=== PATIENT | female | born 1935 | race African-American/Black ===

== ENCOUNTER → 2016-07-10 | Outpatient (CLI) | payer MEDICARE, BC ==
[~2016-07-10] MED LIST: ACETAMINOPHEN325 M1 PO; ACETAMINOPHEN500 M3 PO; ALLOPURINOL100 MG PO; AMOXICILLIN AND1 TER PO; ASPIRIN 81MG TA81 MG PO; ATORVASTATIN CA20 MG PO; BACTRIM DS 8001 TA1 PO; BACTRIM DS 8001 TAB PO; CEPHALEXIN500 MG PO; CHILDREN'S ROB118 M1 PO; CHLORTHALIDONE50 MG PO; CIPRO 250MG TA250 MG PO; CLOPIDOGREL75 M1 PO; DAILY VITE1 TA1 PO; GENTAMICIN O5 ML/BOT OP; GENTAMYCIN TP; HCTZ/SPIRONOLAC1 TAB PO; HUMULIN 70/30 PE3 ML SC; HUMULIN 70100 UNITS/ SC; INSULIN GL100 UNITS/ SC; IPRATROPIUM BROM3 M1 IH; KAYEXALATE1 PDR PO; LASIX 20MG. TAB20 MG PO; LASIX40 MG PO; LEVAQUIN500 MG PO; LEVOTHYROXIN0.075 M3 PO; LIPITOR40 MG PO; LISINOPRIL 5MG T5 MG PO; LISINOPRIL5 MG PO; LOPRESSOR 25MG.25 MG PO; METFORMIN1000 MG PO; METOCLOPRAMIDE10 M2 PO; NITROGLYCERIN0.4 MG SL; NOVOLIN 70/30 710 ML SC; NOVOLOG FLEX100 U/ML SC; NYSTATIN 1 ML1 M1 TP; POTASSIUM CHLO20 ME2 PO; REGLAN 5MG TABLE5 MG PO; REMEDY CALAZIM113 G1 TP; RISAQUAD1 CA1 PO; TRAMADOL 50MG T50 M1 PO; ZOFRAN4 MG PO; ZYVOX600 MG PO
--- NOTE | 2016-07-10 13:12 | RADIOLOGY REPORT PS360 ---
HEEL (OSCALSIS)-RT HISTORY: Heel pain and swelling with redness BILAT HEEL PAIN, R/O OSTEOMYOLITIS ORDERING PHYSICIAN: NELY BLACKWELL PATIENT AGE: 80 years COMPARISON: 11/10/2012 FINDINGS: No obvious fracture or dislocation. No lytic or blastic change.. There is a defect in the soft tissues laterally ulceration. IMPRESSION: Soft tissue defect, no evidence of osteomyelitis
--- NOTE | 2016-07-10 13:16 | RADIOLOGY REPORT PS360 ---
HEEL (OSCALSIS)-LT HISTORY: BILAT HEEL PAIN, R/O OSTEOMYOLITIS ORDERING PHYSICIAN: NELY BLACKWELL PATIENT AGE: 80 years COMPARISON: None FINDINGS: No fracture or dislocation. No lytic or blastic change. Calcaneal spur is noted. Small soft tissue defect noted along the dorsal aspect of the calcaneus. IMPRESSION: Soft tissue defect otherwise negative. No evidence of osteomyelitis
--- NOTE | 2016-07-10 13:16 | RADIOLOGY REPORT PS360 ---
HEEL (OSCALSIS)-LT HISTORY: BILAT HEEL PAIN, R/O OSTEOMYOLITIS ORDERING PHYSICIAN: NEYL BLACKWELL PATIENT AGE: 80 years COMPARISON: None FINDINGS: No fracture or dislocation. No lytic or blastic change. Calcaneal spur is noted. Small soft tissue defect noted along the dorsal aspect of the calcaneus. IMPRESSION: Soft tissue defect otherwise negative. No evidence of osteomyelitis
== END ==
LOC: RAD 10:06
DX: M79.671 Pain in right foot (principal); M79.672 Pain in left foot